=== PATIENT | male | born 1965 | race Caucasian/White ===

== ENCOUNTER 2020-03-14 17:54 | Emergency (ER) | payer OTHER, SELFPAY ==
--- NOTE | ~2020-03-14 | XR_ITS ---
EXAMINATION: XR femur RT min 2V INDICATION: Right leg pain TECHNIQUE: Two views of the right femur are obtained on four radiographs. COMPARISON: CT, 02/06/2010 FINDINGS: There is mild osteoarthritis of the hip. No fracture is identified. Bone alignment is maikel l. Mild osteoarthritis is also noted in the knee. IMPRESSION: 1. No acute osseous abnormality. Reviewed, dictated and finalized at location A. [employer]
[2020-03-14 18:22] VITALS: BP 157/100; PULSE 86; RESP 18; TEMP 37.1; O2SAT 100
--- NOTE | 2020-03-14 19:15 | ED.LOWEXIN ---
HPI - Extremity Injury (Lower) General Chief Complaint: Extremity Injury, Lower Stated Complaint: R LEG PAIN XTD Time Seen by Provider: 03/14/20 19:01 Source: patient Mode of arrival: ambulatory Limitations: no limitations History of Present Illness HPI Narrative: This is a 54-year-old male that presents the emergency department for right upper leg pain since this morning. Pain is reported as crampy in nature. No known injury or trauma. Worse with movement and relieved with rest. Reports swelling in the right ankle. Reports he was told by his primary to be evaluated for blood clot. Denies fever, chest pain, shortness of breath, or erythema. Related Data Home Medications Medication Instructions Recorded Confirmed amitriptyline 03/14/20 nebivolol [Bystolic] mg 03/14/20 pramipexole mg 03/14/20 Allergies Allergy/AdvReac Type Severity Reaction Status Date / Time Penicillins Allergy Unknown Swelling Verified 03/14/20 18:29 of Lip/Tongue/Throat pseudoephedrine Allergy Unknown Palpitation Verified 03/14/20 18:29 s PSEUDOEPHEDRINE HCL Allergy Mild Palpitation Uncoded 03/14/20 18:29 s Wasp Allergy Unknown Unknown Uncoded 03/14/20 18:29 SEASONAL ALLERGENS AdvReac Unknown Other Uncoded 03/14/20 18:29 Review of Systems Review of Systems: Narrative: CONSTITUTIONAL: Denies fever CARDIOVASCULAR: Reports edema. Denies chest pain RESPIRATORY: Denies dyspnea. SKIN: Denies rash MUSCULOSKELETAL: Reports myalgia. NEUROLOGIC: Denies numbness All systems reviewed & are unremarkable except as noted in HPI and below PMFSH Past Medical History Medical History (Updated 03/14/20 @ 21:05 by Alicia Sahni PA-C) History of hypertension Family History Family History (Updated 12/03/13 @ 07:13 by DOCTOR UNKNOWN) Father Hypertension Social History Social History Smoking status: Never smoker Alcohol intake: current Exam Narrative: Exam Narrative: GENERAL: Well-appearing, well-nourished, and in no acute distress. HEAD: Normocephalic, atraumatic. EYES: EOMI. CHEST: Clear to auscultation. No respiratory distress. No wheezes rales or rhonchi HEART: Regular rate and rhythm. No murmur heard. Normal peripheral pulses. BACK: No midline spinal tenderness EXTREMITIES: Normal range of motion. No edema or erythema. Strength equal in bilateral lower extremities (5/5). Normal DP pulses SKIN: Warm, dry, no rash. NEURO: No focal deficits. Alert and oriented x3. PSYCH: Normal mood and affect Course Vital Signs Vital signs: Vital Signs Temperature 98.8 F 03/14/20 18:22 Pulse Rate 86 03/14/20 18:22 Respiratory Rate 18 03/14/20 18:22 Blood Pressure 157/100 H 03/14/20 18:22 Pulse Oximetry 100 03/14/20 18:22 Temperature 98.8 F 03/14/20 20:12 Pulse Rate 86 03/14/20 18:22 Respiratory Rate 18 03/14/20 18:22 Blood Pressure 157/100 H 03/14/20 18:22 Pulse Oximetry 100 03/14/20 18:22 MDM - Extremity Injury (Lower) MDM Narrative Medical decision making narrative: Patient presents emergency department for right leg pain since this morning. Pain in the posterior thigh and described as cramping. No known injury or trauma. He is neurovascularly intact. CBC with thrombocytopenia with platelets of 98. Looking at past labs this seems to be chronic for patient. Metabolic panel without concerning findings. CRP is not elevated. D-dimer is not elevated. Right femur x-ray is without acute findings. Patient was updated on case findings. Patient will be set up for a venous Doppler in the morning. He is to follow-up with his primary care doctor. He was given warnings to return to the ER Lab Data Attestation: I reviewed the patient's lab results. Result diagrams: 03/14/20 19:22 03/14/20 20:03 Labs: Lab Results 03/14/20 03/14/20 03/14/20 Range/Units 19:22 19:22 20:03 WBC 3.7 L (4.5-10.0) K/mm3 RBC 5.61 (4.6-6.20) M/mm3 Hgb 17.8 (14.0
[2020-03-14 19:31] LABS: Basophils Percent Auto 0.3 % (0.2-1.2); Eosinophils Absolute Auto 0.1 K/mm3 (0-0.3); Eosinophils Percent Auto 1.9 % (0-4.4); Hematocrit 49.4 % (42.0-52.0); Hemoglobin 17.8 g/dL (14.0-18.0); Immature Granulocyte Absolute 0.01 K/mm3 (0.00-0.031); Immature Granulocyte Percent A 0.3 % (0-0.5); Immature Platelet Fraction Pct 4.9 % (0.9-11.2); Lymphocytes Absolute Auto 0.92 K/mm3 (0.9-3.2); Mean Corpuscular Hemoglobin 31.7 pg (26-34); Mean Corpuscular Volume 88.1 fl (80-100); Mean Platelet Volume 10.5 fl (7.4-10.4); Monocytes Absolute Auto 0.4 K/mm3 (0.1-0.6); Monocytes Percent Auto 10.6 % (2.6-8.5); Neutrophils Absolute Auto 2.3 K/mm3 (1.3-6.7); Neutrophils Percent Auto 61.9 % (45.5-73.1); Platelet Count Result 98 k/mm3 (150-375); Red Blood Count 5.61 M/mm3 (4.6-6.20); Red Cell Distribution Width 12.2 % (11.5-14.5); White Blood Count 3.7 K/mm3 (4.5-10.0)
[2020-03-14 19:42] LABS: INR 0.9; Prothrombin Time 12.9 Seconds (11.1-14.7)
[2020-03-14 19:44] LABS: Partial Thromboplastin Time 28.3 SECONDS (22.3-36.8)
[2020-03-14 19:48] LABS: D Dimer 0.27 ug/mL (<0.48)
[2020-03-14 20:12] VITALS: TEMP 37.1
[2020-03-14 20:22] LABS: Anion Gap 8 mmol/L (8-16); Blood Urea Nitrogen 18 mg/dL (9-20); CRP 0.9 mg/dL (<1.0); Calcium 8.9 mg/dL (8.4-10.2); Carbon Dioxide 26 mmol/L (22-30); Chloride 102 mmol/L (98-107); Estimated CRCL calculation 109 ml/min; Estimated Glomerular Filt Rate > 60; Glucose 111 mg/dL (75-110); Magnesium 1.8 mg/dL (1.6-2.3); Sodium 136 mmol/L (137-145)
[2020-03-14 21:02] VITALS: BP 152/95; PULSE 80; RESP 16; TEMP 37.1; O2SAT 97
[2020-03-14 21:16] VITALS: BP 152/95; PULSE 80; RESP 16; TEMP 37.1; O2SAT 97
== END 2020-03-14 21:15 | disposition home or self-care (01) ==
PROVIDERS: Physician Assistant; Emergency Provider Emergency Medicine; PCP Family Medicine Sports Medicine
DX: M79.651 Pain in right thigh (principal); I10 Essential (primary) hypertension
CPT/HCPCS: 36415; 73552; 80048; 83735; 85025; 85055; 85380; 85610; 85730; 86140; 99283

== ENCOUNTER 2020-03-15 06:56 | Outpatient (CLI) | payer OTHER, SELFPAY ==
--- NOTE | ~2020-03-15 | US_ITS ---
EXAMINATION: US venous doppler LE RT DATE: 03/15/2020 07:31 INDICATION: Right lower limb pain TECHNIQUE: Grayscale ultrasound images without and with compression and Doppler ultrasound images of the right lower extremity veins were obtained. COMPARISON: None. FINDINGS: The visualized portions of right common femoral vein, profunda (deep) femoral vein, femoral vein, pop liteal vein, peroneal trunk, posterior tibial veins, peroneal veins, gastrocnemius vein and greater s aphenous vein outflow are patent. IMPRESSION: 1. No deep venous thrombosis in the right lower limb. Reviewed, dictated and finalized at location A. MANAGER
== END 2020-03-15 06:57 | disposition home or self-care (01) ==
LOC: ANHIMG 06:59
PROVIDERS: PCP Family Medicine Sports Medicine; Visit Provider Family Medicine Sports Medicine
DX: M79.661 Pain in right lower leg (principal)
CPT/HCPCS: 93971